=== PATIENT | female | born 2000 | race Caucasian/White ===

== ENCOUNTER 2021-01-05 14:50 | Emergency (ER) | payer OTHER ==
[2021-01-05 17:09] LABS: HEMOGLOBIN 13.3 gm/dl (12.3-15.3); RED BLOOD COUNT 4.24 M/UL (4.00-5.10); WHITE BLOOD COUNT 17.7 K/UL (4.5-11.0)
[2021-01-05 17:56] LABS: BUN/CREATININE RATIO 11 (0-10)
[2021-01-05] MEDS ORDERED: CEFUROXIME500 MG PO (19:19)
[2021-01-05] MEDS ORDERED: ZOFRAN4 MG PO (19:19)
== END 2021-01-05 19:26 | disposition home or self-care (01) ==
LOC: ER1 14:50
PROVIDERS: Preventive Medicine Occupational Medicine
DX: N39.0 Urinary tract infection, site not specified (principal)
CPT/HCPCS: 80053; 81001; 83690; 85025; 85652; 86140; 87086; 96374; 96375; 99283; J0696; J2405